=== PATIENT | female | born 1950 | race Caucasian/White ===

== ENCOUNTER → 2017-02-08 | Outpatient (CLI) | payer MEDICARE, OTHER ==
--- NOTE | 2017-02-08 12:46 | DI ---
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 Technique: Axial CT images were performed through the pelvis without intravenous contrast. Coronal and sagittal two-dimensional reformats. Automated Exposure Control and Iterative Reconstruction dose lowering techniques were utilized. Findings: Exam is performed for recent therapy treatment planning purposes. Postoperative changes noted in the left colon and left pelvic sidewall. Radiation therapy treatment planning device present within the vagina. Prior hysterectomy. No free pelvic fluid. The bladder is decompressed. The visualized small and large bowel loops in the pelvis are grossly unremarkable in the unopacified state. Bone windows show no lytic or blastic osseous lesions. No lymphadenopathy appreciated. Impression: Treatment planning exam as above. .
== END ==
LOC: IMA 11:13
PROVIDERS: ATTEND Radiology Radiation Oncology
DX: C54.3 Malignant neoplasm of fundus uteri (principal); Z98.890 Other specified postprocedural states